=== PATIENT | male | born 1970 | race African-American/Black ===

== ENCOUNTER 2017-12-02 16:00 | Outpatient (RCR) | payer BC | END 2017-12-03 | disposition home or self-care (01) | LOC: PTY 16:00 | DX: M25.512 Pain in left shoulder (principal); T14.90XA Injury, unspecified, initial encounter ==

== ENCOUNTER 2017-12-11 16:00 | Outpatient (RCR) | payer BC | END 2018-01-03 | disposition home or self-care (01) | LOC: PTY 16:00 | DX: T14.90XA Injury, unspecified, initial encounter (principal); M25.512 Pain in left shoulder ==

== ENCOUNTER 2018-01-08 16:00 | Outpatient (RCR) | payer BC | END 2018-02-02 | disposition home or self-care (01) | LOC: PTY 16:00 | DX: S49.92XD Unspecified injury of left shoulder and upper arm, subsequent encounter (principal); M25.512 Pain in left shoulder ==